=== PATIENT | male | born 1955 | race Caucasian/White ===

== ENCOUNTER 2017-03-28 21:10 | Emergency (ER) | payer OTHER ==
[~2017-03-28] VITALS: Ht 172.7 cm; Wt 88.6 kg
[2017-03-28 21:25] VITALS: BP 165/88; PULSE 71; RESP 18; O2SAT 98
--- NOTE | 2017-03-28 23:06 | ED.REPORT ---
HPI-Extremity Problem Upper Date of Service Mar 28, 2017 ED Provider: Thuan Cohen MD A 61 year old male with a history of hypertension presents to the ED complaining of left arm pain. The pt began experiencing aching, shooting left arm pain two weeks ago. The pain seemed to resolve but returned today. It has now increased in severity, radiating to his hand and causing numbness of his fourth and fifth fingers. The pt has been under increased stress recently and believes that this may be related to his pain. Nursing Notes Stated Complaint: PAIN IN LEFT ARM Chief Complaint: Extremity Trauma Nursing Notes Reviewed: Yes Allergies: Coded Allergies: No Known Allergies (Unverified , 03/28/17) Scheduled Prednisone (PredniSONE) 20 Mg Tablet 20 MG PO TID General Time Seen by MD: 23:04 Chief Complaint Other (Left arm pain) Hx Obtained From: Patient Arrived By: Walk-in Onset Occurred: More than a week ago... Symptom Duration: Intermittent Recent Healthcare: No recent doctor visit, No recent hospitalization Similar Sx Previous: No Past Medical History Past Medical History Reports: Hypertension Past Surgical History none reported Family History hypertension cardiac disease Social History smokes cigars Other Social History: Good social support Ambulatory Status Independent Review of Systems Musculoskeletal: Reports: Extremity pain, Denies: Back pain, Neck pain Neurologic: Reports: Numbness Complete sys rev & neg: except as marked. Respiratory: Denies: Non-productive cough, Shortness of breath Cardiovascular: Denies: Chest pain GI: Denies: Abdominal pain, Vomiting Psychiatric: Reports: Stress Physical Exam Initial Vital Signs Vital Signs (First) Date Time Temp Pulse Resp B/P Pulse Ox O2 Delivery O2 Flow Rate FiO2 03/28/17 21:25 36.7 71 18 165/88 98 Room Air Initial VS: Reviewed, Vital signs normal General/Constitutional: Awake, Alert Neck: Atraumatic, Supple, Full range of motion Respiratory / Chest: Atraumatic, Breath sounds NL, Breath sounds = bilat, No respiratory distress Cardiovascular: Heart rate NL, Regular rhythm, Heart sounds NL Upper Extremity / MS: Atraumatic, Full range of motion, Vascular intact left ulnar distribution pain without decreased sensation tender ulnar nerve at the left elbow Skin: Atraumatic, Color NL, No rash, Warm, Dry Neurologic: Oriented X3, Speech NL, No motor deficits, No sensory deficits Head / Eyes: Atraumatic, Normocephalic, PERRL, EOMI ENT: Atraumatic, Airway patent, Mucous membranes moist Abdomen: Atraumatic, Soft, Non-tender Back: Atraumatic, Full range of motion Lower Extremity / Pelvis / MS: Atraumatic, Full range of motion, No edema Psychiatric: Affect NL, Mood NL Interpretation & Diagnostics Lab Results Interpretation Result Diagram: 03/28/17 2334 03/28/17 2334 Test 03/28/17 23:34 White Blood Count 5.8th/mm3 (3.8-10.1) Red Blood Count 4.69mil/mm3 (4.40-5.80) Hemoglobin 13.7g/dL (13.8-17.2) Hematocrit 39.4% (41.0-50.0) Mean Corpuscular Volume 84.0fL (81-100) Mean Corpuscular Hemoglobin 29.2pg (27.0-35.0) Mean Corpuscular Hemoglobin Concent 34.8% (32.0-37.0) Red Cell Distribution Width 13.2% (12.3-15.4) Platelet Count 146bil/L (150-400) Neutrophils (%) (Auto) 54.6% (40-74) Lymphocytes (%) (Auto) 20.3% (14-46) Monocytes (%) (Auto) 17.9% (4-12) Eosinophils (%) (Auto) 6.2% (0-5) Basophils (%) (Auto) 0.7% (0-3) Sodium Level 139mEq/L (134-144) Potassium Level 3.6mEq/L (3.5-5.2) Chloride Level 103mEq/L (97-108) Carbon Dioxide Level 21mmol/L (18-29) Blood Urea Nitrogen 15mg/dL (6-24) Creatinine 0.81mg/dL (0.76-1.27) Estimat Glomerular Filtration Rate 104mL/min (>59) Glucose Level 132mg/dL (60-99) Calcium Level 8.8mg/dL (8.5-10.1) Magnesium Level 2.1mg/dL (1.6-2.6) Total Bilirubin 0.3mg/dL (0.0-1.2) Aspartate Amino Transf (AST/SGOT) 28U/L (0-50) Alanine Aminotransferase (ALT/SGPT) 48U/L (0-44) Alkaline Phosphatase 70U/L (25-160) Troponin T 0.010ug/L (0.0-0.011) Total Protein 6.7g/dL (6.4-8.4) Albumin 4.2g/dL (3.4-5.0) Hold Whitney Top Tube Received (Received) Lab values outside NL range: no clinical significance. ECG Interpretation ECG Interpretation: normal sinus rhythm with a rate of 67 IVCD, consider atypical RBBB Time: 23:20 Interpreted by: ED physician X-Ray Chest Interpretation Chest Xray Interpretation: Impression: normal View: Portable, 1 view Interpretation / Wet Read by: Wet read ED physician X-Ray Interpretation Xray Interpretation: Neck X-Ray: Impression: C4-T1 multi-level degenerative disease X-Ray Ordered: Neck Xray Interpretation: Left Arm X-Ray: Impression: no acute fracture Interpretation / Wet Read by: Wet read ED physician Re-Eval/Medical Decision Med Decision/Clinical Course 61-year-old male who presents with some left arm discomfort in an ulnar nerve distribution. He is concerned about possible heart disease because he has a strong family history. EKG, chest x-ray, and troponin are all negative. C- spine x-ray shows multiple degenerative changes at C4 through C7 consistent with a suspected diagnosis of cervical radiculopathy. He was placed on prednisone 5 day taper. He will talk to his regular provider about an MRI if symptoms persist. Source of Hx: Old records Re-Evaluation/Progress : Time of Eval: 00:27 Re-Evaluation/Progress Note: Patient rechecked. Discussed plan for discharge. Patient understands and agrees with plan. F/U instructions and RTER warnings given. All questions addressed at this time. Counseled Regarding: Diagnosis, Lab results, Need for follow-up, When/why to return to ED Discharge & Departure Impression: Primary Impression: Ulnar neuropathy Laterality: left Qualified Code: G56.22 - Lesion of ulnar nerve, left upper limb Disposition: Home Discharge Condition All VS Reviewed: Yes Condition: Stable Patient Instructions: Cervical Radiculopathy (ED) Additional Instructions: All of your heart tests look normal. I do not think the left arm pain is a manifestation of heart pain. You have multiple levels of degenerative disc disease and spurring in the lower C-spine. Your pain is likely from a pinched nerve root. Avoid activities that hurt it. Prednisone 40 mg tonight and then 20 mg 3 times a day for the next 5 days, #15 prescription sent. Follow-up with your regular doctor in the next few days if symptoms do not improve. You will likely need an MRI to reevaluate this. Referrals: Sher Matthews MD (PCP) Scribe Attestation Portions of this note were transcribed by Catarina Gonzales and Haylee Gillespie. I, Dr. Cohen personally performed the history, physical exam and medical decision-making; I reviewed and confirmed the accuracy of the information in the transcribed note. copies to: Sher Matthews MD, Howard L MD Mar 28, 2017 23:06 CATARINA GONZALES Mar 28, 2017 23:13 Haylee Gillespie Mar 29, 2017 00:29
[2017-03-28 23:43] LABS: BASOPHILS % (AUTO) 0.7 % (0-3); EOSINOPHILS % (AUTO) 6.2 % (0-5); MONOCYTES % (AUTO) 17.9 % (4-12); Mean Corpuscular Hemoglobin 29.2 pg (27.0-35.0); NEUTROPHILS % (AUTO) 54.6 % (40-74); Platelet Count 146 bil/L (150-400)
[2017-03-29 00:24] LABS: Magnesium 2.1 mg/dL (1.6-2.6); TROPONIN T 0.01 ug/L (0.0-0.011)
[2017-03-29] MEDS ORDERED: predniSONE 20 mg Tablet PO ONE (00:40)
[2017-03-29] MEDS ORDERED: PRE20 PO (00:40)
[2017-03-29 00:56] VITALS: BP 159/84; PULSE 76; O2SAT 99
--- NOTE | 2017-03-29 08:42 | DRSVH ---
PROCEDURE: X-RAY CHEST, TWO VIEWS ([id number]) INDICATIONS: left arm pain TECHNIQUE: 2 views of the chest were acquired. COMPARISON: [facility], , CHEST 1 VIEW, 04/13/2016, 9:11. [facility], CR, CHEST 1VW (PORTABLE), 09/12/2010, 19:01. FINDINGS: Surgical changes and devices: None. Lungs and pleura: No pleural effusions or pneumothorax. Lungs are clear. Mediastinum: Mediastinal contours are normal. Heart size is normal. Bones and chest wall: Truncation of the right distal clavicle can be seen, as before. No suspicious bony abnormalities. Soft tissues appear unremarkable. IMPRESSION: No acute cardiopulmonary process is seen. Remote truncation of the right distal clavicle. Please correlate with prior trauma or surgery. Dictated by: Logan Hutson M.D. on 03/29/2017 at 8:39 Approved by: Logan Hutson M.D. on 03/29/2017 at 8:40
--- NOTE | 2017-03-29 08:43 | DRSVH ---
PROCEDURE: X-RAY CERVICAL SPINE, 2 OR 3 VIEWS INDICATIONS: left arm pain TECHNIQUE: 4 view(s) of the cervical spine were acquired. COMPARISON: [facility], CR, XR CHEST 2VW, 03/28/2017, 23:36. FINDINGS: Bones: No fractures or dislocations to the T1 level. The lateral masses of C1 appear intact on the odontoid view. No suspicious bony lesions. Degenerative changes are seen, with mild disc space narr owing at the C6-C7 level. Anteriorly directed endplate osteophytes can be seen at the C4-C5 and the C5-C6 levels. There is straightening of the normal cervical lordosis. Soft tissues: No prevertebral soft tissue swelling. The visualized lung apices are unremarkable. IMPRESSION: Age-appropriate degenerative changes are seen. Straightening of the normal cervical lordosis is seen, which is commonly observed in patients with mu scular spasm. Dictated by: Logan Hutson M.D. on 03/29/2017 at 8:40 Approved by: Logan Hutson M.D. on 03/29/2017 at 8:41
== END 2017-03-29 00:58 | disposition home or self-care (01) ==
LOC: SED 21:10
DX: G56.22 Lesion of ulnar nerve, left upper limb (principal); I10 Essential (primary) hypertension